=== PATIENT | male | born 1970 | race Caucasian/White ===

== ENCOUNTER 2021-04-28 15:50 | Emergency (ER) | payer OTHER ==
[~2021-04-28 15:50] MED LIST: BACTROBAN NASAL1 GM; JANUVIA50 MG PO; LIPITOR 10MG TA10 MG PO; METFORMIN HCL500 MG PO; NEXIUM20 MG PO; ZESTRIL5 MG PO
[2021-04-28 17:10] LABS: INFLUENZA A NAA NEGATIVE (NEGATIVE)
[2021-04-28 17:12] LABS: CORONAVIRUS 2019 SARS-COV-2 POSITIVE (NEGATIVE)
== END 2021-04-28 17:49 | disposition home or self-care (01) ==
LOC: FER 15:50
PROVIDERS: Internal Medicine
DX: U07.1 COVID-19 (principal); I10 Essential (primary) hypertension; E11.65 Type 2 diabetes mellitus with hyperglycemia; Z88.0 Allergy status to penicillin
CPT/HCPCS: 99284; U0002